=== PATIENT | male | born 2000 | race Caucasian/White ===

== ENCOUNTER 2019-01-20 09:01 | Emergency (ER) | payer OTHER, SELFPAY ==
[~2019-01-20] VITALS: Ht 182.9 cm; Wt 62.9 kg
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
[2019-01-20 09:23] LABS: BASO # 0.1 x10^3/uL (0.0-0.2); BASO % 1 % (0-3); EOS # 0.2 x10^3/uL (0.0-0.7); EOS % 2 % (0-3); HEMATOCRIT 44.1 % (39.0-53.0); HEMOGLOBIN 14.7 g/dL (13.0-17.5); LYMPH # 2.4 x10^3/uL (1.0-4.8); LYMPH % 21 % (24-48); MEAN CORPUSCULAR HEMOGLOBIN 29 pg (25-35); MEAN CORPUSCULAR HGB CONC 33 g/dL (31-37); MEAN CORPUSCULAR VOLUME 86 fL (79-100); MONO # 0.9 x10^3/uL (0.0-1.1); MONO % 9 % (0-9); NEUT # 7.5 x10^3uL (1.8-7.7); NEUT % 68 % (31-73); PLATELET COUNT 190 x10^3/uL (140-400); RED BLOOD COUNT 5.11 x10^6/uL (4.30-5.70); RED CELL DISTRIBUTION WIDTH 12.6 % (11.5-14.5); WHITE BLOOD COUNT 11.1 x10^3/uL (4.0-11.0)
[2019-01-20] MEDS ORDERED: DIPHTH,PERTUSS(ACELL),TET TOX 0.5 ML DISP.SYRIN. VAX IM ONE (09:30)
[2019-01-20 09:31] LABS: CALCIUM 9.1 mg/dL (8.5-10.1); CREATININE 1.3 mg/dL (0.7-1.3); GFR 71.1; POTASSIUM 3.4 mmol/L (3.5-5.1)
[2019-01-20 09:36] LABS: ALBUMIN 4.4 g/dL (3.4-5.0); ALBUMIN/GLOBULIN RATIO 1.4 (1.0-1.7); TOTAL BILIRUBIN 0.4 mg/dL (0.2-1.0); TOTAL PROTEIN 7.6 g/dL (6.4-8.2)
[2019-01-20 09:37] LABS: PROTHROMBIN TIME PATIENT 13.5 SEC (11.7-14.0)
[2019-01-20 09:38] LABS: ETHANOL < 10 mg/dL (0-10); SALIC 2.9 mg/dL (2.8-20.0)
[2019-01-20 09:39] LABS: ACETAMIN < 2 mcg/ml (10-30)
[2019-01-20] MEDS ORDERED: MORPHINE SULFATE 4 MG/ML VIAL. IV ONE (09:45)
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
[2019-01-21] MEDS ORDERED: NICOTINE 14MG PATCH. TD SCH (09:00)
== END 2019-01-20 12:09 | disposition short-term general hospital (02) ==
LOC: EEVIPCON 09:01 → ER 09:01
DX: S02.69XB Fracture of mandible of other specified site, initial encounter for open fracture (principal); M54.2 Cervicalgia; W32.0XXA Accidental handgun discharge, initial encounter; Y93.89 Activity, other specified; Y92.89 Other specified places as the place of occurrence of the external cause; Y99.8 Other external cause status
CPT/HCPCS: 36415; 70450; 70486; 72125; 80053; 80329; 85025; 85610; 85730; 90471; 90715; 96374; 99285; G0480; J2270